=== PATIENT | female | born 1940 | race Caucasian/White ===

== ENCOUNTER 2022-10-18 23:21 | Emergency (ER) | payer MEDICARE, OTHER ==
[2022-10-19] MEDS ORDERED: Doxycycline Monohydrate 100 MG Cap PO ONE (00:11)
== END 2022-10-19 00:23 | disposition home or self-care (01) ==
LOC: LL.ED 23:21
DX: S30.861A Insect bite (nonvenomous) of abdominal wall, initial encounter (principal); Z87.891 Personal history of nicotine dependence; W57.XXXA Bitten or stung by nonvenomous insect and other nonvenomous arthropods, initial encounter
CPT/HCPCS: 99281; 99283; A9270-GY